=== PATIENT | female | born 1940 | race Caucasian/White ===

== ENCOUNTER 2019-08-16 07:46 | Day surgery (SDC) | payer MEDICARE, SELFPAY ==
[2019-08-15 13:52] VITALS: BMI 20.2
--- NOTE | 2019-08-16 08:20 | ANES.PREANES ---
Pre-Anesthetic Assessment Pre-Anesthetic Assessment: Height/Weight: Height 1.63 m Weight 53.524 kg Proposed Procedure: Operation Date: 08/16/19 09:30 Proposed Procedures p Colonoscopy 44731 R19.4(Not Applicable) - Zion Hubbard MD Social: Social History: No alcohol and No tobacco Exam: Pre-Anes Outpt Exam: alert, oriented x 3, clear to auscultation bilaterally and regular rate & rhythm Airway: Submandibular: WNL Cervical ROM: WNL MP: 2 Dentition: Full History/ROS: No significant history except as noted Pulmonary: Pulmonary: None reported CV/HEM: CV/HEM: HTN : : None reported Hepatic: Hepatic: None reported GI: GI: None reported Metabolic: Metabolic: None reported Musc/skel: Musc/skel: None reported Neuropsych: Neuropsych: None reported Anesthetic Plan: ASA status: II Anesthesia: Anesthesia Evaluation and MAC PFSH Anesthesia PFSH: Medical History (Updated 08/11/19 @ 10:45 by Zion Hubbard MD) Change in bowel habits (Acute) Social History Smoking and tobacco status: never smoked Second hand smoke exposure: No Alcohol intake: never Adopted: No Caregiver/support person: Yes Lives independently: Yes Household members: spouse Housing: House Marital status: Number of children: 1 Highest education level completed: High School Graduate service: No Current occupational status: retired Current occupational exposures/hazards: No Pets and animals: No History of recent travel: No Sexually active: No Current gender identity: Female Justina/Yarsanism: Scientologist Special justina needs: No Agree to transfusion: No Financial difficulty paying for basics: Decline to Answer Data Anesthesia Cardiac Studies: No Data to Display
[2019-08-16 08:55] VITALS: BP 178/97; PULSE 94; RESP 18; TEMP 36.7; O2SAT 100
[2019-08-16] MEDS: sodium chloride 0.9% 1,000 ML 30 ML (08:59)
--- NOTE | 2019-08-16 09:43 | PM.HPUD ---
H&P update H&P Update: DATE OF SURGERY/PROCEDURE: 08/16/19 DATE H&P PERFORMED: 08/10/19 H&P UPDATE INFORMATION: H&P completed within last 30 days and No changes to prior documentation PREOP DIAGNOSIS: Change in bowel habits PLANNED PROCEDURE: Operation Date: 08/16/19 09:30 Proposed Procedures p Colonoscopy 43540 R19.4(Not Applicable) - Zion Hubbard MD Full H&P Perinent History: Medical/Surgical History: Medical History (Updated 08/11/19 @ 10:45 by Zion Hubbard MD) Change in bowel habits (Acute) Family History: Family History (Updated 08/10/19 @ 10:17 by Kasia Rowan RN) Denies family history of Anesthesia complication Bleeding disorder Social History: Social History Smoking and tobacco status: never smoked Second hand smoke exposure: No Alcohol intake: never Adopted: No Caregiver/support person: Yes Lives independently: Yes Household members: spouse Housing: House Marital status: Number of children: 1 Highest education level completed: High School Graduate service: No Current occupational status: retired Current occupational exposures/hazards: No Pets and animals: No History of recent travel: No Sexually active: No Current gender identity: Female Justina/Temple: Denominational Special justina needs: No Agree to transfusion: No Financial difficulty paying for basics: Decline to Answer
[2019-08-16 10:14] VITALS: BP 129/74; PULSE 71; RESP 16; TEMP 36.2; O2SAT 100
--- NOTE | 2019-08-16 10:18 | ANE.PACU ---
 Inpatient post-anesthesia follow up: Airway intact: Yes Vital signs: Temperature 98.1 F Pulse Rate [Bilate ral Radial] 94 Respiratory Rate 18 Blood Pressure [Le ft Arm] 178/97 Pulse Oximetry 100 Oxygen Delivery Me thod Room Air Oxygen Flow Rate Fraction of Inspir ed Oxygen Hydration adequate: Yes Nausea and vomiting: No Pain level: 1 Mental status: Baseline
[2019-08-16 10:30] VITALS: BP 146/85; PULSE 68; RESP 18; O2SAT 100
== END 2019-08-16 10:50 | disposition home or self-care (01) ==
PROVIDERS: PCP Nurse Practitioner Family; Visit Provider Surgery
PROC: 0DJD8ZZ Inspection of Lower Intestinal Tract, Via Natural or Artificial Opening Endoscopic (ICD-10-PCS; CPT 45378; principal; 2019-08-16 09:30)
DX: R19.4 Change in bowel habit (principal); Z90.49 Acquired absence of other specified parts of digestive tract; D12.2 Benign neoplasm of ascending colon; D12.0 Benign neoplasm of cecum; I10 Essential (primary) hypertension
CPT/HCPCS: 12345; 45380; 45385; 88305; 96365; J2704; J7030

== ENCOUNTER → 2019-10-11 10:00 | Outpatient (BNVA) | payer MEDICARE, SELFPAY | PROVIDERS: PCP Nurse Practitioner Family; Visit Provider Internal Medicine | DX: R10.13 Epigastric pain (principal); E03.9 Hypothyroidism, unspecified; D64.9 Anemia, unspecified | CPT/HCPCS: 80053; 82607; 83540; 83550; 84443; 85025 ==

== ENCOUNTER 2019-10-13 08:02 | Day surgery (SDC) | payer MEDICARE, SELFPAY ==
[2019-10-12 12:00] VITALS: BMI 18.1
[2019-10-13 09:03] VITALS: BP 146/70; PULSE 67; RESP 18; TEMP 36.4; O2SAT 100
--- NOTE | 2019-10-13 09:14 | ANES.PREANE2 ---
Pre-Anesthetic Assessment Pre-Anesthetic Assessment: Height/Weight: Height 1.63 m Weight 48.081 kg Temp Pulse Resp BP Pulse Ox 97.6 F 67 18 146/70 100 10/13/19 09:03 10/13/19 09:03 10/13/19 09:03 10/13/19 09:03 10/13/19 09:03 Preop Diagnosis: t Proposed Procedure: Operation Date: 10/13/19 09:45 Proposed Procedures p EGD 94533 R10.13(Not Applicable) - Gilson Herrera MD Social: Social History: No alcohol and No tobacco Exam: Pre-Anes Outpt Exam: alert, oriented x 3, clear to auscultation bilaterally and regular rate & rhythm Airway: Submandibular: WNL Cervical ROM: WNL MP: 2 Dentition: False (upper and lower) History/ROS: No significant history except as noted Pulmonary: Pulmonary: None reported CV/HEM: CV/HEM: Anemia and HTN : : None reported Hepatic: Hepatic: None reported GI: Comments: h/o colon ca abd pain Metabolic: Metabolic: None reported Musc/skel: Musc/skel: None reported Neuropsych: Neuropsych: None reported Anesthetic Plan: ASA status: 2 Anesthesia: Anesthesia Evaluation and MAC Risk of > 500 ml blood loss (7ml/kg in children): No PFSH Anesthesia PFSH: Medical History Anemia Change in bowel habits History of colon cancer Hypertension Surgical History History of colon surgery (~2012) History of colonoscopy (~07/2019) Family History Denies family history of Anesthesia complication Bleeding disorder Social History Smoking and tobacco status: never smoked Second hand smoke exposure: No Alcohol intake: never Adopted: No Caregiver/support person: Yes Lives independently: Yes Household members: spouse Housing: House Marital status: Number of children: 1 Highest education level completed: High School Graduate service: No Current occupational status: retired Current occupational exposures/hazards: No Pets and animals: No History of recent travel: No Sexually active: No Current gender identity: Female Justina/Religious: Latter-Day Special justina needs: No Agree to transfusion: No Financial difficulty paying for basics: Decline to Answer Data Anesthesia Cardiac Studies: No Data to Display
[2019-10-13] MEDS: sodium chloride 0.9% 1,000 ML 30 ML IV (09:15)
--- NOTE | 2019-10-13 09:33 | W.PM.OPSUD ---
Surgery/Procedure H&P Update DATE OF PROCEDURE: October 13, 2019 DATE H&P PERFORMED: 10/11/19 PREOP DIAGNOSIS: t PLANNED PROCEDURE: Operation Date: 10/13/19 09:45 Proposed Procedures p EGD 35734 R10.13(Not Applicable) - Gilson Herrera MD
[2019-10-13 10:40] VITALS: BP 138/75; PULSE 70; RESP 18; TEMP 36.2; O2SAT 93
[2019-10-13 10:56] VITALS: BP 144/75; PULSE 62; RESP 18; O2SAT 100
== END 2019-10-13 11:10 | disposition home or self-care (01) ==
PROVIDERS: PCP Nurse Practitioner Family; Visit Provider Internal Medicine
PROC: 0DJ08ZZ Inspection of Upper Intestinal Tract, Via Natural or Artificial Opening Endoscopic (ICD-10-PCS; CPT 43235; principal; 2019-10-13 09:45)
DX: R10.13 Epigastric pain (principal); K44.9 Diaphragmatic hernia without obstruction or gangrene; K29.70 Gastritis, unspecified, without bleeding; D64.9 Anemia, unspecified; I10 Essential (primary) hypertension; Z85.038 Personal history of other malignant neoplasm of large intestine
CPT/HCPCS: 12345; 43235; J2001; J2704; J7030

== ENCOUNTER 2020-02-29 08:52 | Inpatient (IN) | payer MEDICARE, SELFPAY ==
[2020-02-28 12:20] VITALS: BMI 16.2
[2020-02-29] VITALS (17 sets, daily range): BP systolic 112–136; BP diastolic 62–89; PULSE 81–99; RESP 14–25; TEMP 36.2–36.8; O2SAT 96–100
[2020-02-29] MEDS: sodium chloride 0.9% 1,000 ML 30 ML IV (09:10)
--- NOTE | 2020-02-29 09:36 | ANES.PREANE2 ---
Pre-Anesthetic Assessment Pre-Anesthetic Assessment: Height/Weight: Height 1.63 m Weight 43.091 kg Temp Pulse Resp BP Pulse Ox 97.2 F L 91 16 136/89 100 02/29/20 08:52 02/29/20 08:52 02/29/20 08:52 02/29/20 08:52 02/29/20 08:52 Preop Diagnosis: Abdominal mass Proposed Procedure: Operation Date: 02/29/20 10:50 Proposed Procedures p Exploratory Laparotomy [id number](Not Applicable) - Darrel Samuels MD s poss Colon Resection(Not Applicable) - Darrel Samuels MD Last intake: Intake Last Liquid Date 02/28/20 Last Liquid Time 18:00 Last Solid Date 02/28/20 Last Solid Time 12:00 Social: Social History: No alcohol and No tobacco Exam: Pre-Anes Outpt Exam: alert, oriented x 3, clear to auscultation bilaterally and regular rate & rhythm Airway: Submandibular: WNL Cervical ROM: WNL MP: 1 Dentition: Full (dentures) History/ROS: No significant history except as noted Pulmonary: Pulmonary: None reported CV/HEM: CV/HEM: Anemia and HTN : : None reported Hepatic: Hepatic: None reported GI: GI: GERD Metabolic: Metabolic: None reported Musc/skel: Musc/skel: None reported Neuropsych: Neuropsych: None reported Anesthetic Plan: ASA status: 3 Anesthesia: Anesthesia Evaluation and General Risk of > 500 ml blood loss (7ml/kg in children): No Meds/Allergies Current Medications: Current Medications Generic Name Dose Route Start Last Admin Trade Name Freq PRN Reason Stop Dose Admin Sodium Chloride 1,000 mls @ 30 ml s/hr 02/29/20 08:30 02/29/20 09:10 Sodium Chloride 0.9% IV 03/01/20 08:29 30 mls/hr .Q24H FRANCISCO Administration PFSH Anesthesia PFSH: Medical History Anemia Change in bowel habits History of colon cancer Hypertension Surgical History H/O esophagogastroduodenoscopy History of colon surgery (~2012) History of colonoscopy (~07/2019) Family History Denies family history of Anesthesia complication Bleeding disorder Social History Smoking and tobacco status: never smoked Second hand smoke exposure: No Alcohol intake: never Adopted: No Caregiver/support person: Yes Lives independently: Yes Household members: spouse Housing: House Marital status: Number of children: 1 Highest education level completed: High School Graduate service: No Current occupational status: retired Current occupational exposures/hazards: No Pets and animals: No History of recent travel: No Sexually active: No Current gender identity: Female Justina/Latter-Day: Anabaptist Special justina needs: No Agree to transfusion: No Financial difficulty paying for basics: Decline to Answer Data Anesthesia Cardiac Studies: No Data to Display
--- NOTE | 2020-02-29 10:26 | W.PM.OPSUD ---
Surgery/Procedure H&P Update DATE OF PROCEDURE: February 29, 2020 DATE H&P PERFORMED: 02/27/20 H&P UPDATE INFORMATION: I have reviewed H&P completed within last 30 days, I have examined patient prior to procedure and No changes to prior documentation PREOP DIAGNOSIS: Abdominal mass PLANNED PROCEDURE: Operation Date: 02/29/20 10:50 Proposed Procedures p Exploratory Laparotomy [id number](Not Applicable) - Darrel Samuels MD s poss Colon Resection(Not Applicable) - Darrel Samuels MD
[2020-02-29] MEDS: metroNIDAZOLE IV 500 MG/100 ML PREMIX 100 MG IV ×2 (13:03→19:55)
--- NOTE | 2020-02-29 15:11 | PM.OP ---
Operative Report Date of procedure: February 29, 2020 Pre-op Diagnosis: Small bowel obstruction, FDG positive lesion right lower quadrant Post-op Diagnosis: 1. Right ovarian cyst 2. Constricting mass in the distal small bowel causing small bowel obstruction 3. No evidence of obstruction at the ileocolic anastomosis 4. No evidence of carcinomatosis or liver metastasis Procedure Done: Exploratory laparotomy Small bowel resection with [id number] stapled anastomosis Right ovarian cystectomy Pathology: 1. small bowel containing mass 2. Right ovarian cyst 3. lymph node from mesentry Surgeon: Darrel Samuels Anesthesia: General Estimated blood loss (mL): 25 IV fluids (mL): 900 Urine output (mL): 100 Condition: stable Disposition: PACU Procedure: The patient was taken to the operating room and intubated under general anesthesia after IV antibiotic had been administered. An NG tube and Akbar catheter was placed. The abdomen was prepped and draped in a sterile manner. Using 10 blade a midline laparotomy incision was made over the existing scar, subcutaneous tissue was divided with electrocautery and the peritoneal cavity was entered. On entering the peritoneal cavity, majority of the small bowel loops were dilated. The small bowel was then examined from the ligament of Treitz and about 20 cm from the ileocolic anastomosis there was a constricting mass noted which was causing small bowel obstruction. It appeared that the patient had been chronically obstructed due to thickened dilated small bowel noted proximal to the lesion. This mass was in the right lower quadrant which corresponded to the FDG positive lesion noted on the PET CT scan. Distal to the mass the small bowel was collapsed and the ileocolic anastomosis appeared patent with no palpable masses inside. Using electrocautery the small bowel was freed from the right lateral abdominal wall where she had adhesions from her prior right hemicolectomy. Patient had a colonoscopy earlier this year by Dr. Hubbard which had shown that there was no evidence of any mass at the anastomosis. The mesentery of the small bowel was scored after the area of division proximal and distal to the mass was identified. Using Voyent electrocautery device the mesentery was divided. A separate enlarged lymph node was identified in the mesentery and sent to pathology. Examination of peritoneal cavity did not reveal any evidence of carcinomatosis or liver metastasis. There was a cyst measuring about 5 cm on the right ovary which was excised and sent separately to pathology. The peritoneal cavity was irrigated with warm saline. Interrupted 4-0 Vicryl sutures were placed to approximate the proximal and distal end of the small bowel which were going to be anastomosed. Using electrocautery enterotomies were created and a 55 mm blue load MAX stapler was fired to create a [id number] enteroenterostomy. The previously created enterotomies were grasped with Allis clamps and 3 loads of 55 mm blue load MAX stapler was fired distal to the enterotomies to resect the specimen which was sent to pathology. The defect in the mesentery was closed with running 4-0 Vicryl suture. After confirming the position of the NG tube the omentum was laid over the small bowel. The fascia was closed using running #1 looped PDS. The subcutaneous reapproximated using interrupted 3-0 Vicryl suture and skin was closed with matt and covered with sterile dressings.
[2020-02-29] MEDS: ondansetron 2 mg/ML SDV 2 mL 4 MG IVP ×2 (15:22→15:30)
--- NOTE | 2020-02-29 15:32 | SUR.PHASEI ---
1530 PT HAS REFUSED PAIN MED
[2020-02-29] MEDS: metoclopramide 5 mg/mL SDV 2 mL 10 MG IVP (15:35)
[2020-02-29] MEDS: fentaNYL 50 mcg/mL INJ 2mL IVP ×2 (15:38→15:43)
[2020-02-29] MEDS: D5-NS 0.45% + KCL 20 mEq 20 MEQ/1,000 ML BAG 100 MEQ IV (20:00)
[2020-02-29] MEDS: hyDRALAzine 10 mg Tablet PO (22:31)
[2020-03-01] VITALS (9 sets, daily range): BP systolic 97–131; BP diastolic 61–82; PULSE 76–97; RESP 16–20; TEMP 36.4–36.9; O2SAT 95–98
[2020-03-01 04:16] LABS: Basophils % 0.3 %; Hematocrit 32.4 % (37.0-47.0); Hemoglobin 10.3 g/dL (11.5-15.3); Lymphocytes # 0.4 10^3/uL (0.8-4.8); Lymphocytes % 7.2 %; Mean Corpuscular HGB Conc 31.8 g/dL (30.0-36.0); Mean Corpuscular Volume 94.5 fL (81-99); Mean Platelet Volume 10.6 fL (7.4-10.4); Monocytes # 0.4 10^3/uL (0.2-0.9); Monocytes % 6.2 %; Neutrophils # 5.14 10^3/uL (1.8-7.7); Neutrophils % 86.1 %; Nucleated Red Blood Cells % 0 %; Platelet Count 212 10^3/cmm (130-400); Red Blood Count 3.43 10^6/uL (4.1-5.3)
[2020-03-01 04:41] LABS: Anion Gap 10.4 (5-19); Blood Urea Nitrogen 19 mg/dL (8-23); Calcium 7.3 mg/dL (8.5-10.5); Carbon Dioxide 23 mmol/L (22-29); Chloride 110 mmol/L (98-107); Glucose 125 mg/dL (65-115); Osmolality Calculated 286 mOsm/kg (285-295); Potassium 4.4 mmol/L (3.5-5.1); Sodium 139 mmol/L (136-145)
[2020-03-01] MEDS: metroNIDAZOLE IV 500 MG/100 ML PREMIX 100 MG IV (05:48)
[2020-03-01] MEDS: enoxaparin 30 mg/0.3 mL Syringe SUBCUT (08:37)
[2020-03-01] MEDS: docusate sodium 100 mg Capsule PO ×2 (08:37→21:21)
[2020-03-01] MEDS: loratadine 10 mg Tablet PO (08:37)
[2020-03-01] MEDS: hyDRALAzine 10 mg Tablet PO ×3 (08:40→21:21)
--- NOTE | 2020-03-01 12:40 | PM.PN ---
Subjective Subjective: Interval history: Patient states that abdominal pain is reasonably controlled, no flatus or BM Vitals/I&O/Wt Last Vital Signs Temp 97.6 F 03/01/20 11:58 Pulse 88 03/01/20 11:58 Resp 16 03/01/20 11:58 BP 131/81 03/01/20 11:58 Pulse Ox 96 03/01/20 11:58 02/29/20 03/01/20 03/01/20 22:59 06:59 14:59 Intake Total 150 / 1450 1150 / 1450 360 / 360 Output Total 400 / 625 225 / 625 Balance -250 / 825 925 / 825 360 / 360 Physical Exam Narrative: EXAM NARRATIVE: Abdomen: Soft, nondistended, tender, dressings dry and intact Urinary Catheter Management^: Akbar: Cath Placed During This Visit: yes, but has since been removed by the nurse Reason for Continuing Indwelling Catheter: Other Urinary Catheter Date of Insertion: 02/29/20 Urinary Catheter Time of Insertion: 13:25 Date Urinary Catheter Removed: 03/01/20 Time Urinary Catheter Discontinued: 09:00 Data : 03/03/20 04:51 03/03/20 04:51 A&P Assessment and plan (1) S/P small bowel resection: 80-year-old female status post small bowel resection postop day 1 with postop ileus Clamp NG tube Start clear liquid diet Lovenox for DVT prophylaxis Pepcid for GI prophylaxis Daily labs Ambulate with physical therapy Patient will need greater than 2 nights of inpatient stay to ensure resolution of obstruction Status: Acute Attestations Medical Necessity Statement*: Small bowel obstruction status post surgery requiring continued inpatient stay Coding Level of Care Code Acute E Learning Developer for [facility] Fwd Diagnoses S/P small bowel resection Z90.49
[2020-03-01] MEDS: D5-NS 0.45% + KCL 20 mEq 20 MEQ/1,000 ML BAG 100 MEQ IV (16:15)
--- NOTE | 2020-03-01 17:00 | PC.NURSE ---
Spoke with Dr Samuels concerning patient output, no new orders.
[2020-03-01] MEDS: montelukast sodium 10 mg Tablet PO (21:21)
[2020-03-02 04:00] VITALS: BP 110/70; PULSE 86; RESP 18; TEMP 36.7; O2SAT 96
[2020-03-02] MEDS: D5-NS 0.45% + KCL 20 mEq 20 MEQ/1,000 ML BAG 100 MEQ IV ×2 (04:54→15:54)
[2020-03-02 04:58] LABS: Basophils % 0.3 %; Eosinophils % 0.3 %; Hematocrit 29.6 % (37.0-47.0); Hemoglobin 9.2 g/dL (11.5-15.3); Lymphocytes # 0.6 10^3/uL (0.8-4.8); Lymphocytes % 8.7 %; Mean Corpuscular HGB Conc 31.1 g/dL (30.0-36.0); Mean Corpuscular Hemoglobin 28.9 pg (28.0-34.0); Mean Corpuscular Volume 93.1 fL (81-99); Mean Platelet Volume 10.9 fL (7.4-10.4); Monocytes # 0.4 10^3/uL (0.2-0.9); Monocytes % 5.4 %; Neutrophils # 5.94 10^3/uL (1.8-7.7); Neutrophils % 84.9 %; Nucleated Red Blood Cells % 0 %; Platelet Count 199 10^3/cmm (130-400); Red Blood Count 3.18 10^6/uL (4.1-5.3)
[2020-03-02 05:17] LABS: Anion Gap 9.3 (5-19); Blood Urea Nitrogen 15 mg/dL (8-23); Calcium 7.8 mg/dL (8.5-10.5); Carbon Dioxide 21 mmol/L (22-29); Chloride 104 mmol/L (98-107); Glucose 95 mg/dL (65-115); Osmolality Calculated 266 mOsm/kg (285-295); Potassium 4.3 mmol/L (3.5-5.1); Sodium 130 mmol/L (136-145)
[2020-03-02 07:44] VITALS: BP 123/79; PULSE 90; RESP 16; TEMP 36.5; O2SAT 98
[2020-03-02] MEDS: loratadine 10 mg Tablet PO (08:37)
[2020-03-02] MEDS: hyDRALAzine 10 mg Tablet PO ×3 (08:37→21:07)
[2020-03-02] MEDS: enoxaparin 30 mg/0.3 mL Syringe SUBCUT (08:37)
[2020-03-02] MEDS: docusate sodium 100 mg Capsule PO ×2 (08:37→17:49)
[2020-03-02 11:45] VITALS: BP 130/82; PULSE 95; RESP 16; TEMP 36.6; O2SAT 96
[2020-03-02 15:50] VITALS: BP 133/81; PULSE 99; RESP 17; TEMP 36.5; O2SAT 100
[2020-03-02] MEDS: montelukast sodium 10 mg Tablet PO (17:49)
[2020-03-02 19:51] VITALS: BP 123/79; PULSE 104; RESP 20; TEMP 37.3; O2SAT 98
[2020-03-03] VITALS (7 sets, daily range): BP systolic 113–152; BP diastolic 73–95; PULSE 87–99; RESP 16–20; TEMP 36.7–37.1; O2SAT 96–99
[2020-03-03] MEDS: D5-NS 0.45% + KCL 20 mEq 20 MEQ/1,000 ML BAG 100 MEQ IV (02:38)
[2020-03-03 05:05] LABS: Basophils % 0.2 %; Eosinophils # 0.1 10^3/uL (0.0-0.8); Eosinophils % 1.1 %; Hematocrit 28.2 % (37.0-47.0); Hemoglobin 8.9 g/dL (11.5-15.3); Lymphocytes # 0.5 10^3/uL (0.8-4.8); Lymphocytes % 8.7 %; Mean Corpuscular HGB Conc 31.6 g/dL (30.0-36.0); Mean Corpuscular Volume 91.9 fL (81-99); Mean Platelet Volume 10.1 fL (7.4-10.4); Monocytes # 0.3 10^3/uL (0.2-0.9); Monocytes % 4.2 %; Neutrophils # 5.21 10^3/uL (1.8-7.7); Neutrophils % 85.1 %; Nucleated Red Blood Cells % 0 %; Platelet Count 204 10^3/cmm (130-400); Red Blood Count 3.07 10^6/uL (4.1-5.3); Red Cell Distribution Width 13.8 % (12.1-15.1); White Blood Count 6.1 10^3/uL (4.0-10.0)
[2020-03-03 05:28] LABS: Anion Gap 5.1 (5-19); Blood Urea Nitrogen 9 mg/dL (8-23); Calcium 8.1 mg/dL (8.5-10.5); Carbon Dioxide 23 mmol/L (22-29); Chloride 105 mmol/L (98-107); Glucose 100 mg/dL (65-115); Osmolality Calculated 264 mOsm/kg (285-295); Potassium 4.1 mmol/L (3.5-5.1); Sodium 129 mmol/L (136-145)
[2020-03-03 07:17] LABS: Glucose Point of Care 102 mg/dL (70-110)
[2020-03-03] MEDS: loratadine 10 mg Tablet PO (08:42)
[2020-03-03] MEDS: enoxaparin 30 mg/0.3 mL Syringe SUBCUT (08:42)
[2020-03-03] MEDS: docusate sodium 100 mg Capsule PO ×2 (08:42→17:17)
[2020-03-03] MEDS: hyDRALAzine 10 mg Tablet PO ×3 (08:42→20:30)
--- NOTE | 2020-03-03 09:53 | P.PN_ITS ---
Subjective Subjective: Interval history: Date of service: 03/02/2020 patient denies any flatus or BM, does not feel distended, tolerating NG tube being clamped Vitals/I&O/Wt Last Vital Signs Temp 98.6 F 03/03/20 06:58 Pulse 97 03/03/20 06:58 Resp 16 03/03/20 06:58 BP 113/77 03/03/20 06:58 Pulse Ox 97 03/03/20 06:58 03/02/20 03/03/20 03/03/20 22:59 06:59 14:59 Intake Total 420 / 3020 1000 / 3020 180 / 180 Output Total 1500 / 3300 1000 / 3300 350 / 350 Balance -1080 / -280 0 / -280 -170 / -170 Physical Exam Narrative: EXAM NARRATIVE: Abdomen: Soft, nondistended, minimally tender, incision clean dry and intact, NG tube clamped Urinary Catheter Management^: Akbar: Cath Placed During This Visit: yes, but has since been removed by the nurse Reason for Continuing Indwelling Catheter: Other Urinary Catheter Date of Insertion: 02/29/20 Urinary Catheter Time of Insertion: 13:25 Date Urinary Catheter Removed: 03/01/20 Time Urinary Catheter Discontinued: 09:00 Data : 03/03/20 04:51 03/03/20 04:51 A&P Assessment and plan (1) S/P small bowel resection: 80-year-old female status post small bowel resection postop day 2 with postop ileus Clamp NG tube clear liquid diet Lovenox for DVT prophylaxis Pepcid for GI prophylaxis Daily labs Ambulate with physical therapy Patient will need greater than 2 nights of inpatient stay to ensure resolution of obstruction Status: Acute Attestations Medical Necessity Statement*: Small bowel obstruction requiring continued inpatient stay to ensure resolution Coding Level of Care Code Acute Administrative Resident for [facility] Fwd Diagnoses S/P small bowel resection Z90.49
--- NOTE | 2020-03-03 09:54 | P.PN_ITS ---
Subjective Subjective: Interval history: She denies any flatus or BM, tolerating NG tube being clamped, pain is well controlled Vitals/I&O/Wt Last Vital Signs Temp 98.6 F 03/03/20 06:58 Pulse 97 03/03/20 06:58 Resp 16 03/03/20 06:58 BP 113/77 03/03/20 06:58 Pulse Ox 97 03/03/20 06:58 03/02/20 03/03/20 03/03/20 22:59 06:59 14:59 Intake Total 420 / 3020 1000 / 3020 180 / 180 Output Total 1500 / 3300 1000 / 3300 350 / 350 Balance -1080 / -280 0 / -280 -170 / -170 Physical Exam Narrative: EXAM NARRATIVE: Abdomen: Soft, nondistended, minimally tender, incision clean dry and intact, NG tube clamped Urinary Catheter Management^: Akbar: Cath Placed During This Visit: yes, but has since been removed by the nurse Reason for Continuing Indwelling Catheter: Other Urinary Catheter Date of Insertion: 02/29/20 Urinary Catheter Time of Insertion: 13:25 Date Urinary Catheter Removed: 03/01/20 Time Urinary Catheter Discontinued: 09:00 Data : 03/03/20 04:51 03/03/20 04:51 A&P Assessment and plan (1) S/P small bowel resection: 80-year-old female status post small bowel resection postop day 3 with postop ileus Clamp NG tube Continue clear liquid diet Fleets enema today Start lactulose 15 cc p.o. twice daily Lovenox for DVT prophylaxis Pepcid for GI prophylaxis Daily labs Ambulate with physical therapy Patient will need greater than 2 nights of inpatient stay to ensure resolution of obstruction Status: Acute Attestations Medical Necessity Statement*: Small bowel resection requiring continued inpatient stay to ensure resolution of obstruction Coding Level of Care Code Acute Trailer Rental Clerk for [facility] Fwd Diagnoses S/P small bowel resection Z90.49
--- NOTE | 2020-03-03 10:25 | PC.SOCIAL ---
IMM Update Pg. 2 of IMM given and explained to patient who verbalized understanding. Copy provided to patient.
[2020-03-03] MEDS: Fleet Enema 133 mL Enema PR (10:43)
[2020-03-03] MEDS: lactulose oral liq 20 gm/30 mL UDC 10 GM PO ×2 (10:43→20:31)
[2020-03-03] MEDS: montelukast sodium 10 mg Tablet PO (17:17)
--- NOTE | 2020-03-03 20:36 | PC.NURSE ---
pt ambulated a short lap in lee tolerated well. no complaints of pain/n/v denies passing gas.
[2020-03-04] VITALS: BP 147/88; PULSE 93; RESP 18; TEMP 36.6; O2SAT 97
[2020-03-04 04:00] VITALS: BP 160/89; PULSE 97; RESP 19; TEMP 36.6; O2SAT 99
[2020-03-04] MEDS: D5-NS 0.45% + KCL 20 mEq 20 MEQ/1,000 ML BAG 100 MEQ IV (04:04)
--- NOTE | 2020-03-04 06:40 | XR_ITS ---
WS: [id number] ABDOMEN SERIES Supine and upright views of the abdomen CLINICAL INFORMATION: ileus COMPARISON: None. FINDINGS: Enteric tube with tip in the proximal stomach. Surgical matt lower abdomen and pelvis. Surgical cl ips right lower quadrant. Multiple air-fluid levels on the upright view. Persistent air within the co rhona. Findings compatible with developing partial small bowel obstruction or ileus. Small bilateral pl eural effusions. XR/XR abdomen min 2V 99075 IMPRESSION: 1. Enteric tube with tip in the proximal stomach. Sidehole at the GE junction. This could be advanced. 2. Multiple air-fluid levels on the upright view with persistent air within th e colon. Findings due to partial small bowel obstruction versus adynamic ileus. 3. Postoperative changes right lower quadrant
--- NOTE | 2020-03-04 06:42 | PC.NURSE ---
pt with liq stool and urine mixed in bsc.
[2020-03-04 07:35] VITALS: BP 148/85; PULSE 90; RESP 18; TEMP 36.6; O2SAT 98
--- NOTE | 2020-03-04 07:45 | PC.NURSE ---
removed NG per physician orders, NG tube intact, tolerated well, resting in bed, discussed plan of care, verbalized understanding, denies further questions or concerns.
[2020-03-04] MEDS: docusate sodium 100 mg Capsule PO ×2 (08:42→17:40)
[2020-03-04] MEDS: hyDRALAzine 10 mg Tablet PO ×3 (08:42→23:21)
[2020-03-04] MEDS: loratadine 10 mg Tablet PO (08:42)
[2020-03-04] MEDS: lactulose oral liq 20 gm/30 mL UDC 10 GM PO ×2 (08:42→23:21)
[2020-03-04] MEDS: enoxaparin 30 mg/0.3 mL Syringe SUBCUT (08:42)
[2020-03-04 12:05] VITALS: BP 137/83; PULSE 90; RESP 18; TEMP 36.7; O2SAT 98
--- NOTE | 2020-03-04 15:08 | PM.PN ---
Subjective Subjective: Interval history: Patient has been doing well, had loose bowel movements, no nausea or vomiting, tolerating full liquid diet Vitals/I&O/Wt Last Vital Signs Temp 98.1 F 03/04/20 12:05 Pulse 90 03/04/20 12:05 Resp 18 03/04/20 12:05 BP 137/83 03/04/20 12:05 Pulse Ox 98 03/04/20 12:05 03/04/20 03/04/20 03/04/20 06:59 14:59 22:59 Intake Total 150 / 2260 200 / 200 Output Total 1625 / 2675 100 / 100 Balance -1475 / -415 100 / 100 Physical Exam Narrative: EXAM NARRATIVE: Abdomen: Soft, nondistended, minimally tender, incision clean dry and intact Urinary Catheter Management^: Akbar: Cath Placed During This Visit: yes, but has since been removed by the nurse Reason for Continuing Indwelling Catheter: Other Urinary Catheter Date of Insertion: 02/29/20 Urinary Catheter Time of Insertion: 13:25 Date Urinary Catheter Removed: 03/01/20 Time Urinary Catheter Discontinued: 09:00 Data : 03/03/20 04:51 03/03/20 04:51 A&P Assessment and plan (1) S/P small bowel resection: 80-year-old female status post small bowel resection postop day 4, postop ileus resolving DC NG tube Advance to GI soft diet Start lactulose 15 cc p.o. twice daily Lovenox for DVT prophylaxis Pepcid for GI prophylaxis Ambulate with physical therapy Case management consult, patient is not sure whether she can go home now due to concerns about her 's health Patient will need greater than 2 nights of inpatient stay to ensure resolution of obstruction Status: Acute Attestations Medical Necessity Statement*: Status post small bowel resection resolving ileus Coding Level of Care Code Acute Director Of Community Services for [facility] Fwd Diagnoses S/P small bowel resection Z90.49
[2020-03-04 16:00] VITALS: BP 150/92; PULSE 109; RESP 18; TEMP 37.1; O2SAT 98
--- NOTE | 2020-03-04 16:25 | PC.NURSE ---
SNF stating that patient has to have negative covid test. typewriter operator automatic notified Dr Samuels and requested he put order in for covid test.
[2020-03-04] MEDS: montelukast sodium 10 mg Tablet PO (18:03)
[2020-03-04 19:40] VITALS: BP 116/70; PULSE 103; RESP 16; TEMP 36.6; O2SAT 97
[2020-03-04 21:14] LABS: Glucose Point of Care 115 mg/dL (70-110)
[2020-03-05] VITALS: BP 132/81; PULSE 94; RESP 18; TEMP 36.8; O2SAT 97
[2020-03-05 04:00] VITALS: BP 128/90; PULSE 90; RESP 18; TEMP 36.6; O2SAT 97
[2020-03-05 07:45] VITALS: BP 137/75; PULSE 82; RESP 18; TEMP 36.7; O2SAT 98
[2020-03-05] MEDS: enoxaparin 30 mg/0.3 mL Syringe SUBCUT (07:56)
[2020-03-05] MEDS: loratadine 10 mg Tablet PO (07:57)
[2020-03-05] MEDS: docusate sodium 100 mg Capsule PO (07:57)
[2020-03-05] MEDS: hyDRALAzine 10 mg Tablet PO ×3 (07:57→20:49)
[2020-03-05] MEDS: lactulose oral liq 20 gm/30 mL UDC 10 GM PO (07:57)
--- NOTE | 2020-03-05 10:52 | DCPLANNER ---
Pg 2 of IM updated and reviewed with pt. No questions but comments that she is ready to go when she is accepted.
[2020-03-05 11:10] VITALS: BP 123/78; PULSE 98; RESP 18; TEMP 36.8; O2SAT 97
[2020-03-05 15:42] VITALS: BP 123/81; PULSE 90; RESP 18; TEMP 36.9; O2SAT 94
[2020-03-05] MEDS: montelukast sodium 10 mg Tablet PO (16:05)
--- NOTE | 2020-03-05 17:33 | PM.PN ---
Subjective Subjective: Interval history: Patient feeling great, tolerating regular diet, had bowel movements, waiting on COVID-19 testing Vitals/I&O/Wt Last Vital Signs Temp 98.4 F 03/05/20 15:42 Pulse 90 03/05/20 15:42 Resp 18 03/05/20 15:42 BP 123/81 03/05/20 15:42 Pulse Ox 94 03/05/20 15:42 03/05/20 03/05/20 03/05/20 06:59 14:59 22:59 Intake Total 320 / 320 Output Total 800 / 1350 Balance -800 / -790 320 / 320 Physical Exam Narrative: EXAM NARRATIVE: Abdomen: Soft, nondistended, minimally tender, incision clean dry and intact Urinary Catheter Management^: Akbar: Cath Placed During This Visit: yes, but has since been removed by the nurse Reason for Continuing Indwelling Catheter: Other Urinary Catheter Date of Insertion: 02/29/20 Urinary Catheter Time of Insertion: 13:25 Date Urinary Catheter Removed: 03/01/20 Time Urinary Catheter Discontinued: 09:00 Data : 03/03/20 04:51 03/03/20 04:51 A&P Assessment and plan (1) S/P small bowel resection: Doing well Awaiting call with results DC IV fluids GI soft diet Status: Acute Attestations Medical Necessity Statement*: Awaiting covid 19 testing prior to discharge Coding Level of Care Code Acute Member Service Specialist for [facility] Fwd Diagnoses S/P small bowel resection Z90.49
[2020-03-05 20:00] VITALS: BP 113/71; PULSE 90; RESP 18; TEMP 37.3; O2SAT 98
[2020-03-06] VITALS: BP 133/76; PULSE 82; RESP 18; TEMP 37; O2SAT 97
[2020-03-06 04:00] VITALS: BP 131/81; PULSE 85; RESP 18; TEMP 36.9; O2SAT 98
[2020-03-06 07:20] VITALS: BP 122/77; PULSE 78; RESP 18; TEMP 36.7; O2SAT 98
[2020-03-06 08:02] LABS: Coronavirus Lab Test PTC Negative
--- NOTE | 2020-03-06 08:55 | PM.DCS ---
Discharge Providers Date of Admission: 02/29/20 08:52 Date of Discharge: March 06, 2020 Attending Provider at Admission: Darrel Samuels MD Attending Provider at Discharge: Darrel Samuels MD Primary Care Provider: Arvind Geller Diagnoses at Discharge Discharge Diagnosis (1) S/P small bowel resection: Status: Acute Reason for Visit Reason for Visit: lap poss open colon resection Hospital Course Hospital Course: This is a 80-year-old female who underwent open small bowel resection for obstructing mass causing small bowel obstruction. By day 3 patient had return of bowel function, at time of discharge she was tolerating a regular diet having bowel movements. Her vital signs are stable and her incisions are clean dry and intact. Her COVID-19 test was negative and [facility] 's inability to take care of her. Physical Exam Urinary Catheter Management^: Akbar: Cath Placed During This Visit: yes, but has since been removed by the nurse Reason for Continuing Indwelling Catheter: Other Urinary Catheter Date of Insertion: 02/29/20 Urinary Catheter Time of Insertion: 13:25 Date Urinary Catheter Removed: 03/01/20 Time Urinary Catheter Discontinued: 09:00 Discharge Data Data Completed and Pending: Completed Studies During Hospitalization Category Date Time Status XR abdomen min 2V [id number] Routine Exams 03/04/20 06:40 Completed Pending at discharge Category Date Time Status Pathology: Surgic al [PTH] Routine Pth 02/29/20 15:56 Received Labs from last 24 hours 03/04/20 18:45 Nasal/Oral COVID-1 9 PCR Negative Vitals: Last Vital Signs Temp 98.1 F 03/06/20 07:20 Pulse 78 03/06/20 07:20 Resp 18 03/06/20 07:20 BP 122/77 03/06/20 07:20 Pulse Ox 98 03/06/20 07:20 Discharge Plan Discharge Patient Disposition: Home Condition: Stable Prescriptions: [place] 5-325 mg tablet 1 tab PO Q6H 7 Days Qty: 20 RF: 0 Continued hydralazine 10 mg tablet 10 mg PO TID RF: 0 omeprazole 40 mg Capsule,Delayed Release(Dr/Ec) 40 mg PO DAILY RF: 0 montelukast 10 mg Tablet 10 mg PO QPM RF: 0 ondansetron 4 mg Tablet,Disintegrating 4 mg PO Q8H RF: 0 loratadine 10 mg Tablet 10 mg PO DAILY RF: 0 mirtazapine 7.5 mg Tablet 7.5 mg PO DAILY RF: 0 Creon 24,000-76,000 -120,000 unit Capsule,Delayed Release(Dr/Ec) 1 cap PO TID RF: 0 Discharge Orders: Discharge Order (Routine); Ordered 03/06/20 Ordered By: Darrel Samuels Referrals: [facility] [Outside] Darrel Samuels MD [Physician] - 03/18/20 (for staple removal) Discharge Diet: Advance as tolerated Activity Restrictions/Additional Instructions: 1. Up and walking as tolerated. 2. Ok to shower 3. Keep incision clean dry and intact 4. Do not lift more than 10 pounds. 5. Do not operate heavy machinery or drive while using pain medications. 6. Advised to return to ER or contact my office if there are any signs of infection like, increasing pain, fevers, chills, redness or drainage of pus. Discharge Attestations Time Spent in Discharge Care*: less than 30 min Quality Metrics Clinical Quality Measures During this hospital stay, did patient experience: None Coding Level of Care Code Acute Budget Record Clerk for Chg Fwd Diagnoses S/P small bowel resection Z90.49
[2020-03-06] MEDS: loratadine 10 mg Tablet PO (09:21)
[2020-03-06] MEDS: hyDRALAzine 10 mg Tablet PO (09:21)
[2020-03-06] MEDS: enoxaparin 30 mg/0.3 mL Syringe SUBCUT (09:22)
[2020-03-06 11:09] VITALS: BP 110/71; PULSE 88; RESP 18; TEMP 36.4; O2SAT 97
[2020-03-06 13:16] VITALS: BP 110/71; PULSE 88; RESP 18; TEMP 36.4; O2SAT 97
== END 2020-03-06 13:17 | disposition home or self-care (01) | DRG 330 ==
PROVIDERS: Admitting Provider Surgery; PCP Family Medicine; Visit Provider Surgery
PROC: 0DT80ZZ Resection of Small Intestine, Open Approach (ICD-10-PCS; CPT 49000; principal; 2020-02-29 10:50)
PROC: 0DT80ZZ Resection of Small Intestine, Open Approach (ICD-10-PCS; CPT 44140; 2020-02-29 10:50)
DX: K56.609 Unspecified intestinal obstruction, unspecified as to partial versus complete obstruction (principal); K91.89 Other postprocedural complications and disorders of digestive system; Z20.828 Contact with and (suspected) exposure to other viral communicable diseases; I10 Essential (primary) hypertension; K21.9 Gastro-esophageal reflux disease without esophagitis; D64.9 Anemia, unspecified; Z85.038 Personal history of other malignant neoplasm of large intestine
CPT/HCPCS: 12345; 36415; 36416; 51702; 74019; 80048; 82962; 85025; 87635; 88304; 88305; 88309; 94664; 96372; 97116; 97161; 97165; 97530; C9290; J0690; J1650; J2405; J2704; J2710; J2765; J3010; J3490; J7030; S0030